=== PATIENT | female | born 1930 | race Caucasian/White ===

== ENCOUNTER → 2016-09-03 | Outpatient (REF) | payer MEDICARE ==
[~2016-09-03] MED LIST: ALTA10CA3 PO; CARV3.12 PO; CENTTAB47 PO; ESTR1MIS PV; FAMO40TA3 PO; OLOP1OPD OU; PRED5PAK PO; PRESCAP4 PO; TURM500C3 PO; VITA100037 PO; [UNRECOGNIZED DRUG - CODE] PV
== END ==
LOC: M SFHCPLAZ 13:43
DX: R06.02 Shortness of breath (principal); Z53.8 Procedure and treatment not carried out for other reasons

== ENCOUNTER → 2016-09-06 | Outpatient (REF) | payer MEDICARE ==
[2016-09-06 13:28] LABS: BASO % 0.6 % (0.0-1.0); EOS # 0.5 K/mm3 (0.0-0.50); EOS % 5.8 % (0.0-3.0); LARGE UNSTAINED CELL # 0.1 K/mm3 (0.0-0.4); LARGE UNSTAINED CELL % 1.3 % (0.0-4.0); LYMPH # 1.8 K/mm3 (1.5-4.5); LYMPH % 19.3 % (24.0-44.0); MEAN CORPUSCULAR HEMOGLOBIN 31.3 pg (27.0-33.0); MEAN CORPUSCULAR VOLUME 92.3 fl (80.0-96.0); MONO # 0.7 K/mm3 (0.0-0.8); MONO % 8.1 % (0.0-5.0); NEUTROPHILS # 5.5 K/mm3 (1.8-7.7); NEUTROPHILS % 64.8 % (36.0-66.0); PLATELET COUNT, AUTOMATED 328 k/mm3 (150-450); RED CELL DISTRIBUTION WIDTH 12.2 % (11.5-14.5); WHITE BLOOD COUNT 8.6 K/mm3 (4.0-10.0)
[2016-09-06 14:08] LABS: ERYTHROCYTE SEDIMENTATION RATE 28 mm/hr (0-42)
== END ==
LOC: M SFHCPLAZ 10:45
DX: R06.02 Shortness of breath (principal); M35.3 Polymyalgia rheumatica; M81.0 Age-related osteoporosis without current pathological fracture

== ENCOUNTER → 2016-10-19 | Outpatient (CLI) | payer MEDICARE ==
[~2016-10-19] MED LIST changes: +ALKA1CHW PO; -ALTA10CA3 PO; +ALTA1CAP4 PO; +CALC-190 PO; +COUM10TA PO; +COUM2.5T17 PO; +IRON65TA PO; +TRAM50TA2 PO; +TYLE500T78 PO; -VITA100037 PO; +VITA100067 PO
[2016-10-19 12:40] LABS: MEAN CORPUSCULAR HEMOGLOBIN 30.8 pg (27.0-33.0); MEAN CORPUSCULAR HGB CONC 33.2 g/dl (32.0-36.5); MEAN CORPUSCULAR VOLUME 92.9 fl (80.0-96.0); RED CELL DISTRIBUTION WIDTH 12.2 % (11.5-14.5); WHITE BLOOD COUNT 7.9 K/mm3 (4.0-10.0)
[2016-10-19 12:44] LABS: INR 0.96
[2016-10-19 13:14] LABS: ALBUMIN 3.8 GM/DL (3.2-5.2); BILIRUBIN,TOTAL 0.3 MG/DL (0.2-1.0); CALCIUM LEVEL 10.1 MG/DL (8.8-10.2); CREATININE FOR GFR 1.05 MG/DL (0.55-1.02); GLOMERULAR FILTRATION RATE 52.7 (>32); POTASSIUM SERUM 4.2 MEQ/L (3.5-5.1); TOTAL PROTEIN 7.6 GM/DL (6.4-8.2)
--- NOTE | 2016-10-19 13:41 | REP ---
PA and lateral chest: Comparison is 08/09/2013. The lung thrasher are clear and unchanged. Cardiac size is borderline enlarged, unchanged. The bev, mediastinum, and bony thorax are unremarkable and unchanged. There is a large fixed hiatal hernia containing an air-fluid level, unchanged. Demineralization, kyphosis are again identified, unchanged. Impression: There are no new or acute cardiopulmonary findings. There are chronic stable findings as described. Signed by Archie Harris MD 10/19/2016 01:32 P
== END ==
LOC: M ADMPAT 10:18
PROVIDERS: ATTEND Orthopaedic Surgery
DX: M17.11 Unilateral primary osteoarthritis, right knee (principal); Z79.899 Other long term (current) drug therapy

== ENCOUNTER 2016-11-02 05:48 | Inpatient (IN) | payer MEDICARE ==
[2016-10-19 11:39] VITALS: BP 130/58
--- NOTE | 2016-10-29 11:13 | HPE ---
DATE OF ADMISSION: 11/02/2016 REASON FOR ADMISSION: : Preoperative history and physical for her continuing symptomatic right knee osteoarthritis. She has consented for right total knee arthroplasty per Dr. Jonah Owens. Medically she was optimized per Dr. Brittany Tyson. X-rays were consistent with advanced osteoarthritis. No known drug allergies. Medical problem list includes: Right knee osteoarthritis. Abnormal glucose level. Iron deficiency anemia. Low back pain. Chronic kidney disease stage III. Essential hypertension. Hypercholesteremia. Uterine prolapse for which the patient uses a pessary. Medication list includes: - Lutein 10 mg. - Trimo-Felton 0.025% - Patanol 0.1% - tumeric curcumin 500 mg - Estring 2 mg - multivitamin adult - Jessy [place] 325/1000/1916 mg. - famotidine 40 mg - [facility] vitamin D3 1000 units - calcium 1000 plus D 1000 - 800 mg - unit - MetroGel vaginal 0.75%. - carvedilol 3.125 mg. - prednisone 5 mg. -acetaminophen extra strength 500 mg. - Ramipril 10 mg. PAST SURGICAL HISTORY: Includes: Tonsillectomy. Appendectomy. Tubal . Total hysterectomy. FAMILY HISTORY: Noncontributory. SOCIAL HISTORY: She was a former smoker. Denies alcohol intake or illicit drugs. REVIEW OF SYSTEMS: Denies chest pain, shortness of breath, dyspnea on exertion, fever, chills, malaise, upper respiratory or urinary tract symptoms. PHYSICAL EXAMINATION: Height 64inches, half weight 143, temperature 98.2, pulse 80, respiration 14, blood pressure 120/70. She is a pleasant well-developed, well-nourished female in no acute distress. She is alert and times three. Mood and affect are appropriate. She is ambulating slow steady with favoring of the left lower extremity, antalgia about the right knee. Right knee joint line tenderness with crepitance through flexion and extension. Patellofemoral joint (PFJ) is congruent and dynamic. She is otherwise stable at the collateral ligaments patellar and quad tendons without palpable defects. No popliteal fossa mass or pain. Right hip range of motion is not limited or irritable through internal, external range of motion. Bowel soft, nontender times four. Chest rises symmetrically. Lungs: Clear to auscultation. Neck: Supple. Negative jugular venous distention (JVD) or bruits. Normocephalic. Lab and diagnostics were reviewed. UA showed positive Klebsiella greater than 30,000 CFU/mL. She was dosed for Bactrim DS twice a day times 4 days since her surgery is on 11/02/2016. Otherwise her labs were fairly unremarkable. BUN was slightly elevated at 22, chloride 109, total protein 6.2, GFR was greater than 60, creatinine 0.85. Chest x-ray showed no acute cardiopulmonary process. I do not have access to her EKG. IMPRESSION: 1. Right knee symptomatic degenerative joint disease (DJD). 2. The patient consented for right total knee arthroplasty per Dr. Jonah Owens. 3. Medical optimization per Dr. Brittany Tyson. 4. On-call to OR 1 grams IV Kefzol in OR. 5. Sequential compression device (SCD) and thromboembolic deterrent stockings (TEDS) in OR. 6. Bactrim DS times 4 days per positive urinary analysis (UA) for Klebsiella. MTDD
[2016-11-02] VITALS (8 sets, daily range): BP systolic 141–178; BP diastolic 70–82; O2SAT 96
[~2016-11-02] VITALS: Ht 162.6 cm; Wt 66.7 kg
[~2016-11-02 05:48] MED LIST changes: -COUM10TA PO; -COUM2.5T17 PO; -TRAM50TA2 PO
[2016-11-02] MEDS ORDERED: ACETAMINOPHEN 500 MG TAB PO ONE (06:00)
[2016-11-02] MEDS ORDERED: LIDOCAINE 1% MDV 20ML VIAL SQ ONE (06:00)
[2016-11-02] MEDS ORDERED: ceFAZolin SOD 1 GM in D5W MINI-BAG PLUS 50 ML IV ONE (06:00)
[2016-11-02] MEDS ORDERED: LR 1,000 ML IV ONE (06:00)
[2016-11-02] MEDS ORDERED: COUM10TA PO (06:27)
[2016-11-02] MEDS ORDERED: MIDAZOLAM INJ 2 MG/2 ML VIAL (J2250) As Ordered ONE (06:52)
[2016-11-02] MEDS ORDERED: fentaNYL 100 MCG/2 ML INJECTION (J3010) As Ordered ONE ×2 (06:52→07:17)
[2016-11-02] MEDS ORDERED: LIDOCAINE 2% INJ 100 MG/5 ML SDV (FOR ANES.) As Ordered ONE (07:17)
[2016-11-02] MEDS ORDERED: PROPOFOL 200 MG/20 ML VIAL As Ordered ONE ×2 (07:17→08:55)
[2016-11-02] MEDS ORDERED: ceFAZolin 1GM INJ (J0690) As Ordered ONE (07:19)
[2016-11-02] MEDS ORDERED: EPINEPHrine INJ 1 MG/ML 1ML AMP As Ordered ONE (07:19)
[2016-11-02] MEDS ORDERED: BUPIVACAINE LIPOSOME/PF 1.3% 20 ML VIAL (13.3MG/ML)(EXPAREL) As Ordered ONE (07:20)
[2016-11-02] MEDS ORDERED: TRANEXAMIC ACID 100 MG/ML 10ML VIAL As Ordered ONE (07:20)
[2016-11-02] MEDS ORDERED: fentaNYL 100 MCG/2 ML INJECTION (J3010) IV ONE (07:45)
[2016-11-02] MEDS ORDERED: MIDAZOLAM INJ 2 MG/2 ML VIAL (J2250) IV ONE (07:45)
[2016-11-02] MEDS ORDERED: ONDANSETRON 4MG/2ML VIAL (J2405) As Ordered ONE (09:57)
[2016-11-02] MEDS ORDERED: MORPHINE 1MG/ML IN 0.9% NACL 100ML IV BAG As Ordered ONE (10:21)
[2016-11-02] MEDS ORDERED: ONDANSETRON 4MG/2ML VIAL (J2405) IV PRN ×2 (10:45)
[2016-11-02] MEDS ORDERED: PERCOCET 5MG/325MG TAB PO PRN (10:45)
[2016-11-02] MEDS ORDERED: HYDROmorphone HCL 1 MG/ML SYRINGE (J1170) IV PRN (10:45)
[2016-11-02] MEDS ORDERED: NALBUPHINE HCL 10 MG/ML AMP (J2300) IV PRN (10:45)
[2016-11-02] MEDS ORDERED: MORPHINE 1MG/ML IN 0.9% NACL 100ML IV BAG IV PRN (10:45)
[2016-11-02] MEDS ORDERED: LR 1,000 ML IV SCH ×2 (10:45)
[2016-11-02] MEDS ORDERED: diphenhydrAMINE INJ 50MG/ML VIAL (J1200) IV PRN (10:45)
[2016-11-02] MEDS ORDERED: NALOXONE INJ 0.4 MG/1 ML VIAL (J2310) IV PRN (10:45)
[2016-11-02] MEDS ORDERED: fentaNYL 100 MCG/2 ML INJECTION (J3010) IV PRN (10:45)
[2016-11-02] MEDS ORDERED: EPIDURAL/PCA KEYS XX PRN (10:45)
[2016-11-02] MEDS ORDERED: ACETAMINOPHEN TAB 650MG DOSE (2X325MG) PO PRN (11:00)
[2016-11-02] MEDS ORDERED: FLEET ENEMA PR PRN (11:00)
[2016-11-02] MEDS: ceFAZolin SOD 1 GM in D5W MINI-BAG PLUS 50 ML IV SCH ×2 (14:00→20:31)
[2016-11-02] MEDS ORDERED: dexameTHASONE 10 MG/1 ML VIAL PRES.FREE (J1100) ONE (14:26)
[2016-11-02] MEDS ORDERED: ROPIvacaine 0.5% 30 ML INJECTION (J2795) ONE (14:26)
[2016-11-02] MEDS ORDERED: WARFARIN SOD 5 MG TAB PO ONE (17:00)
--- NOTE | 2016-11-02 17:01 | RO ---
DATE OF PROCEDURE: 11/02/2016 PREPROCEDURE DIAGNOSIS: Right knee degenerative arthritis. POSTPROCEDURE DIAGNOSIS: Right knee degenerative arthritis. OPERATIVE PROCEDURE: Right total knee arthroplasty using a size 2.5 cruciate retaining femoral component with a 2.5 rotating platform tibial tray with a 10 mm rotating platform polyethylene insert and a 32 mm polyethylene button. Prosthesis made by [employer]. It was a PFC knee. SURGEON: Leah Owens MD TRAIN ATTENDANT: David Jackson ANESTHESIA: Spinal anesthetic with a right femoral nerve block. COMPLICATIONS: None. SPECIMENS: Joint surface. ESTIMATED BLOOD LOSS: Less than 50 mL. DESCRIPTION OF PROCEDURE: Antibiotics were given intravenously preoperatively and a successful right femoral nerve block and spinal anesthetic was established as well as a Krishna catheter. A tourniquet was placed on the right upper thigh and not inflated. Right lower extremity was prepped and draped in the usual sterile fashion and after appropriate time out, the tourniquet was inflated and a longitudinal incision was made for a medial parapatellar arthrotomy of the right knee. Bovie cautery was used to coagulate crossing vessels. Limited subperiosteal dissection around the proximal medial portion of the tibia was performed and then the patella was everted and flexed. It is noteworthy that there was significant complete cartilage loss on the undersurface of the patella but also the medial and lateral femoral condyles despite the appearance of the radiographs. The drill was placed around the center of the femoral canal, followed by the intramedullary kelsie and the distal femoral cutting jig, set at 5 degrees valgus cut at 10 mm resection level for a right knee. The block was pinned into position and the distal femoral cut performed. AP sizing jig measured for a 2.5 size prosthesis. The three directional rotation jig was placed and the two drill holes made followed by the 4-in-1 block applied to the distal femur. Then the anterior-posterior chamfer cuts were performed, taking great care to protect the surrounding soft tissues. We then exposed the proximal tibia, used the extramedullary jig to estimate being parallel to the mechanical axis, references off the medial tibial condyle, set at 4 mm resection level. The block was pinned into position, secondary check with the intramedullary kelsie confirmed that we appeared to be parallel. Proximal tibial osteotomy was then performed. It was quite thinned, but I did place the laminar nitriles lab technician medially, performed a completion lateral meniscectomy with debridement of the posterolateral osteophytes and then placed the laminar nitriles lab technician laterally and performed a completion medial meniscectomy and debridement of the posterior medial osteophytes. Spacer block was too tight both in flexion and in extension at 10 mm. Thus, I went back reattached the tibial block and took an additional 4 mm off the proximal tibia and this allowed the 10 mm spacer block actually to fit quite nicely and this was very stable in both flexion and extension and to varus-valgus stress testing. Thus, I felt this would be the appropriate size components to use. I then exposed the proximal tibia and sized for a 2.5 tray and then the block was pinned into position, followed by the reamer and the broach, then the trial polyethylene and the trial femoral component fit very nicely. Brought the knee into extension, everted the patella, performed a patellar osteotomy, sized for a 32 button. Patellofemoral tracking was anatomic. We then drilled the lug holes for the femur, then removed all the trial components. My human resource assistant Mr. David Jackson was critical to the success of the procedure, mixed the cement on the back table. He also manipulated the knee several times throughout the operation, such that I could perform the operation smoothly and efficiently, helped to close the wound, helped to prepare the patient for surgery among many other tasks. While he was mixing the cement I instilled the Exparel and the periosteum around the femur posteriorly in the midline as well as posterolaterally and posteromedial as well as along the periosteal edges of the femur. Then, we copiously pulsatile lavage irrigated out the knee joint and prepared the bony surfaces for cementing, and dried them thoroughly. We removed the excess cement, placed the polyethylene and then cemented the femoral component, removed the excess cement, then brought the knee into extension, then cemented the patellar button, removed the excess cement and held the knee in extension with a patellar clamp until the cement had hardened and while we were awaiting for that, copiously pulsatile lavage irrigated out the knee joint and then continued to place the Exparel now into the capsular tissues in both the medial and lateral edges and then instilled the tranexamic acid into the joint. Then, we closed the apex of the wound with two interrupted #1 PDS sutures and then closed the medial parapatellar area with a single #1 PDS suture and then used a running double-armed Stratafix to close the capsule. The tourniquet was then released. We irrigated again and closed the deep subdermal tissues with interrupted #2-0 PDS sutures, then the skin was closed with rach, covered by Adaptic dry sterile bulky dressing. She was then transferred to the recovery room in stable condition. There were no intraoperative complications.
--- NOTE | 2016-11-02 19:54 | IPNPDOC ---
Subjective Date Seen The patient was seen on 11/02/16. Subjective Chief Complaint/HPI The patient is a 86-year-old female admitted with a reason for visit of Right Knee Arthritis. Events since last encounter NO COMPLAINTS AT PRESENT , NO PAIN , NO NAUSEA OR VOMITING , NO SOB , NO CHEST PAIN. Objective Physical Examination General Exam: Positive: Alert, Cooperative, No Acute Distress Eye Exam: Positive: PERRLA, Conjunctiva & lids normal, EOMI, Negative: Sclera icteric ENT Exam: Positive: Atraumatic, Mucous membr. moist/pink, Pharynx Normal Neck Exam: Positive: Supple, Negative: JVD, thyromegaly Chest Exam: Positive: Clear to auscultation, Normal air movement Heart Exam: Positive: Rate Normal, Regular Rhythm, Normal S1, Normal S2, Negative: Murmurs, Rubs Abdomen Exam: Positive: Normal bowel sounds, Soft, Negative: Tenderness, Hepatospenomegaly Extremity Exam: Positive: Normal pulses, Negative: Clubbing, Cyanosis, Edema Assessment /Plan Problems (1) Status post total right knee replacement Status: Acute Problem Text: Patient to be followed by Dr Ross from 11/03/16 patient had elective right total knee arthroplasty for advanced osteoarthritis, the procedure was uneventful. consulted by Dr DURAN for management of medical comorbidities pain control and dvt prophylaxis as per ortho protocol (2) Hypertension Status: Chronic Problem Text: continue ACEi and coreg (3) Hypercholesteremia Status: Chronic (4) CKD (chronic kidney disease), stage III Status: Chronic (5) Polymyalgia Status: Chronic (6) Bladder prolapse Status: Chronic Problem Text: Has pessary in place (7) Urinary incontinence Status: Chronic (8) Macular degeneration Status: Chronic (9) Degenerative disc disease Status: Chronic Plan/VTE VTE Prophylaxis Ordered?: Yes VS, I&O, 24H, Fishbone Vital Signs/I&O Vital Signs Date Time Temp Pulse Resp B/P (MAP) Pulse Ox O2 Delivery O2 Flow Rate FiO2 11/02/16 16:45 98.8 90 15 150/80 (103) 97 Nasal Cannula 2.0 JULIA MILTON MD Nov 02, 2016 19:54
[2016-11-02] MEDS: CARVedilol 3.125 MG TAB PO SCH (20:31)
[2016-11-02] MEDS: OLOPATADINE 0.1% OPHTH SOL 5ML(PATANOL) OU SCH (20:31)
[2016-11-03 02:00] VITALS: BP 146/65
[2016-11-03] MEDS: ceFAZolin SOD 1 GM in D5W MINI-BAG PLUS 50 ML IV SCH (02:08)
[2016-11-03 06:00] VITALS: BP 164/86
[2016-11-03] MEDS ORDERED: PERCOCET 5MG/325MG TAB PO PRN (06:30)
[2016-11-03 06:43] LABS: MEAN CORPUSCULAR HGB CONC 33.4 g/dl (32.0-36.5); MEAN CORPUSCULAR VOLUME 89.9 fl (80.0-96.0); RED CELL DISTRIBUTION WIDTH 12.1 % (11.5-14.5); WHITE BLOOD COUNT 12.3 K/mm3 (4.0-10.0)
[2016-11-03 06:47] LABS: INR 1.5
[2016-11-03 06:52] LABS: CALCIUM LEVEL 8.8 MG/DL (8.8-10.2); CREATININE FOR GFR 1.41 MG/DL (0.55-1.02); GLOMERULAR FILTRATION RATE 37.5 (>32); POTASSIUM SERUM 4.8 MEQ/L (3.5-5.1)
[2016-11-03] MEDS: FERROUS SULFATE 325MG TAB PO SCH (09:03)
[2016-11-03] MEDS: ONDANSETRON 4 MG TAB (S0181) PO PRN ×3 (09:03→18:25)
[2016-11-03] MEDS: MOM 30ML SUSPENSION UDC PO SCH (09:03)
[2016-11-03] MEDS: CARVedilol 3.125 MG TAB PO SCH ×2 (09:03→20:33)
[2016-11-03] MEDS: MIRALAX *UNIT DOSE* 17GM PACKET PO SCH (09:03)
[2016-11-03] MEDS: MULTIVITAMINS/MINERALS THERAP 1 TAB PO SCH (09:03)
[2016-11-03] MEDS: RAMIPRIL 5 MG CAP PO SCH (09:04)
[2016-11-03] MEDS: SENOKOT S TAB PO SCH ×2 (09:04→20:33)
[2016-11-03] MEDS: OLOPATADINE 0.1% OPHTH SOL 5ML(PATANOL) OU SCH ×2 (09:04→20:34)
[2016-11-03] MEDS: VITAMIN D 1,000 INTERNATIONAL UNITS TABLET PO SCH (09:04)
[2016-11-03] MEDS: PERCOCET 5MG/325MG TAB PO PRN ×3 (09:04→18:26)
[2016-11-03 10:00] VITALS: BP 149/74
--- NOTE | 2016-11-03 11:48 | REP ---
AP LATERAL RIGHT KNEE, TWO VIEWS: HISTORY: Knee replacement. COMPARISON: 08/20/2015 The patient is status post right total knee replacement. There is no acute fracture or dislocation. A small amount of subcutaneous air and surgical rach are present in the overlying tissue. IMPRESSION: The patient is status post right total knee replacement. There is anatomic alignment. Signed by Pasquale Ontiveros MD 11/03/2016 11:51 A
[2016-11-03 14:00] VITALS: BP 145/82
[2016-11-03] MEDS ORDERED: POLYVINYL ALCOHOL OPHTH SOLN 15 ML(LIQUITEARS) OU PRN (15:45)
[2016-11-03] MEDS ORDERED: WARFARIN SOD 2.5 MG TAB PO ONE (17:00)
[2016-11-03] MEDS ORDERED: WARFARIN SOD 5 MG TAB PO ONE (17:00)
[2016-11-03] MEDS: PRESERVISION EYE VIT PO SCH (20:30)
[2016-11-03 21:33] VITALS: O2SAT 96
[2016-11-03 22:00] VITALS: BP 142/70
[2016-11-04] MEDS: PERCOCET 5MG/325MG TAB PO PRN (05:22)
[2016-11-04 06:00] VITALS: BP 145/66
[2016-11-04 07:42] LABS: MEAN CORPUSCULAR HEMOGLOBIN 30.1 pg (27.0-33.0); MEAN CORPUSCULAR HGB CONC 32.8 g/dl (32.0-36.5); MEAN CORPUSCULAR VOLUME 91.9 fl (80.0-96.0); RED CELL DISTRIBUTION WIDTH 12.4 % (11.5-14.5); WHITE BLOOD COUNT 12.8 K/mm3 (4.0-10.0)
[2016-11-04 07:45] LABS: INR 2.27
[2016-11-04 08:06] LABS: CALCIUM LEVEL 8.7 MG/DL (8.8-10.2); CREATININE FOR GFR 1.15 MG/DL (0.55-1.02); GLOMERULAR FILTRATION RATE 47.4 (>32); POTASSIUM SERUM 4.8 MEQ/L (3.5-5.1)
[2016-11-04] MEDS: ONDANSETRON 4 MG TAB (S0181) PO PRN ×3 (09:22→22:10)
[2016-11-04] MEDS: MOM 30ML SUSPENSION UDC PO SCH (09:22)
[2016-11-04] MEDS: CARVedilol 3.125 MG TAB PO SCH ×2 (09:23→22:07)
[2016-11-04] MEDS: RAMIPRIL 5 MG CAP PO SCH (09:23)
[2016-11-04] MEDS: SENOKOT S TAB PO SCH ×2 (09:23→22:06)
[2016-11-04] MEDS: VITAMIN D 1,000 INTERNATIONAL UNITS TABLET PO SCH (09:23)
[2016-11-04] MEDS: MULTIVITAMINS/MINERALS THERAP 1 TAB PO SCH (09:23)
[2016-11-04] MEDS: traMADol 50 MG TAB PO PRN ×3 (09:24→22:10)
[2016-11-04] MEDS: PRESERVISION EYE VIT PO SCH (09:31)
[2016-11-04] MEDS: MIRALAX *UNIT DOSE* 17GM PACKET PO SCH (09:31)
[2016-11-04] MEDS: OLOPATADINE 0.1% OPHTH SOL 5ML(PATANOL) OU SCH ×2 (09:31→22:08)
[2016-11-04 14:00] VITALS: BP 133/60
[2016-11-04] MEDS ORDERED: CEPACOL LOZENGE PO PRN (16:30)
[2016-11-04 22:00] VITALS: BP 187/77
[2016-11-05 06:00] VITALS: BP 140/82
[2016-11-05] MEDS: traMADol 50 MG TAB PO PRN ×3 (06:01→16:56)
[2016-11-05 07:07] LABS: MEAN CORPUSCULAR HEMOGLOBIN 29.8 pg (27.0-33.0); MEAN CORPUSCULAR HGB CONC 32.5 g/dl (32.0-36.5); MEAN CORPUSCULAR VOLUME 91.6 fl (80.0-96.0); RED CELL DISTRIBUTION WIDTH 12.3 % (11.5-14.5); WHITE BLOOD COUNT 10.2 K/mm3 (4.0-10.0)
[2016-11-05 07:13] LABS: INR 2.06
[2016-11-05 07:15] LABS: CALCIUM LEVEL 8.9 MG/DL (8.8-10.2); CREATININE FOR GFR 1.06 MG/DL (0.55-1.02); GLOMERULAR FILTRATION RATE 52.1 (>32); POTASSIUM SERUM 4.5 MEQ/L (3.5-5.1)
[2016-11-05] MEDS ORDERED: TRAM50TA2 PO (07:36)
[2016-11-05] MEDS ORDERED: COUM2.5T17 PO (07:36)
[2016-11-05] MEDS: FERROUS SULFATE 325MG TAB PO SCH (08:29)
[2016-11-05] MEDS: VITAMIN D 1,000 INTERNATIONAL UNITS TABLET PO SCH (08:29)
[2016-11-05] MEDS: SENOKOT S TAB PO SCH (08:29)
[2016-11-05] MEDS: PRESERVISION EYE VIT PO SCH (08:29)
[2016-11-05] MEDS: MULTIVITAMINS/MINERALS THERAP 1 TAB PO SCH (08:29)
[2016-11-05 08:30] VITALS: BP 173/73
[2016-11-05] MEDS: MIRALAX *UNIT DOSE* 17GM PACKET PO SCH (08:30)
[2016-11-05] MEDS: CARVedilol 3.125 MG TAB PO SCH (08:30)
[2016-11-05] MEDS: OLOPATADINE 0.1% OPHTH SOL 5ML(PATANOL) OU SCH (08:30)
[2016-11-05] MEDS: RAMIPRIL 5 MG CAP PO SCH (08:30)
[2016-11-05] MEDS: MOM 30ML SUSPENSION UDC PO SCH (08:31)
[2016-11-05] MEDS: ONDANSETRON 4 MG TAB (S0181) PO PRN (10:34)
[2016-11-05 14:00] VITALS: BP 122/57
[2016-11-05] MEDS ORDERED: WARFARIN SOD 2.5 MG TAB PO ONE (17:00)
--- NOTE | 2016-11-08 10:32 | DSES ---
DATE OF ADMISSION: 11/02/2016 DATE OF DISCHARGE: 11/05/2016 ATTENDING PHYSICIAN: Dr. Jonah Bautista the ADMISSION DIAGNOSIS: Osteoarthritis right knee. OTHER DIAGNOSES: Anemia. Chronic low back pain. Chronic kidney disease stage III. Hypertension. Elevated cholesterol. Bladder prolapse urinary incontinence. Macular degeneration. Polymyalgia DISCHARGE DIAGNOSIS: Osteoarthritis right knee status post right total knee arthroplasty. OPERATION PERFORMED: Right total knee arthroplasty. HISTORY: This is a pleasant 86-year-old female patient with progressively worsening right knee pain and stiffness. She failed to improve with conservative management. She was admitted for elective knee replacement on right side. HOSPITAL COURSE: The patient was admitted on the day of surgery and underwent the right total knee arthroplasty, which was uneventful. She did well in the postoperative period with pain control. She did struggle with the requirements for physical therapy and due to her numerous comorbidities and struggles with physical therapy was [facility]. On day of discharge she is weightbearing as tolerated on her right knee. She will move her right knee to prevent stiffness. She will use adjusted dose Coumadin and thromboembolic deterrent (NEERU) stockings for 30 days postoperative for deep venous thrombosis (DVT) prophylaxis. She will resume her preoperative medications and diet. She will use oral pain medications for pain control. She will followup in our office in 10-14 days for surgical followup. She was given instructions include but not limited to wound monitoring and activity limitations. Please refer the medical record for further details.
== END 2016-11-05 17:39 | disposition home health service (06) | DRG 470 ==
LOC: M OR 05:48 → M MS5PR 12:00
PROVIDERS: ADMIT Orthopaedic Surgery; ATTEND Orthopaedic Surgery
PROC: 0SRC0J9 Replacement of Right Knee Joint with Synthetic Substitute, Cemented, Open Approach (ICD-10-PCS; principal; 2016-11-02 07:30)
DX: M17.11 Unilateral primary osteoarthritis, right knee (principal); D50.9 Iron deficiency anemia, unspecified; M54.5 Low back pain; N81.10 Cystocele, unspecified; I12.9 Hypertensive chronic kidney disease with stage 1 through stage 4 chronic kidney disease, or unspecified chronic kidney disease; E78.5 Hyperlipidemia, unspecified; M35.3 Polymyalgia rheumatica; H35.30 Unspecified macular degeneration; N39.3 Stress incontinence (female) (male); M81.0 Age-related osteoporosis without current pathological fracture; H91.91 Unspecified hearing loss, right ear; Z79.52 Long term (current) use of systemic steroids; Z87.891 Personal history of nicotine dependence; Z79.899 Other long term (current) drug therapy

== ENCOUNTER → 2017-05-13 | Outpatient (REF) | payer MEDICARE ==
[2017-05-13 15:52] LABS: BASO # 0.1 10^3/uL (0.0-0.2); BASO % 0.8 % (0.0-1.0); EOS # 0.5 10^3/uL (0.0-0.50); EOS % 6.1 % (0.0-3.0); HEMATOCRIT 34.5 % (36.0-47.0); HEMOGLOBIN 11.2 g/dl (12.0-16.0); IMMATURE GRANULOCYTE % 0.2 % (0-3.0); LYMPH # 2.2 10^3/uL (1.5-4.5); LYMPH % 26.4 % (24.0-44.0); MEAN CORPUSCULAR HEMOGLOBIN 29.6 pg (27.0-33.0); MEAN CORPUSCULAR HGB CONC 32.5 g/dl (32.0-36.5); MONO # 0.9 10^3/uL (0.0-0.8); MONO % 10.3 % (0.0-5.0); NEUTROPHILS # 4.7 10^3/uL (1.8-7.7); NEUTROPHILS % 56.2 % (36.0-66.0); PLATELET COUNT, AUTOMATED 310 10^3/uL (150-450); RED BLOOD COUNT 3.79 10^6/uL (4.00-5.40); RED CELL DISTRIBUTION WIDTH 12.5 % (11.5-14.5); WHITE BLOOD COUNT 8.3 10^3/uL (4.0-10.0)
[2017-05-13 16:12] LABS: ALBUMIN 3.8 GM/DL (3.2-5.2); ALBUMIN/GLOBULIN RATIO 1.03 (1.00-1.93); ALKALINE PHOSPHATASE 76 U/L (45-117); ALT/SGPT 15 U/L (12-78); ANION GAP 6 MEQ/L (8-16); AST/SGOT 17 U/L (7-37); BILIRUBIN,TOTAL 0.3 MG/DL (0.2-1.0); BLOOD UREA NITROGEN 28 MG/DL (7-18); CALCIUM LEVEL 9.6 MG/DL (8.8-10.2); CARBON DIOXIDE LEVEL 30 MEQ/L (21-32); CHLORIDE LEVEL 104 MEQ/L (98-107); CREATININE FOR GFR 1.14 MG/DL (0.55-1.30); FERRITIN 137 NG/ML (8-252); GLOMERULAR FILTRATION RATE 47.9 (>32); GLUCOSE, FASTING 107 MG/DL (70-100); IRON (FE) 39 UG/DL (50-170); PERCENT SATURATION 13.1 % (13.2-45.0); POTASSIUM SERUM 4.8 MEQ/L (3.5-5.1); SODIUM LEVEL 140 MEQ/L (136-145); TOTAL IRON BINDING CAPACITY 297 UG/DL (250-450); TOTAL PROTEIN 7.5 GM/DL (6.4-8.2)
[2017-05-13 16:56] LABS: ERYTHROCYTE SEDIMENTATION RATE 43 mm/hr (0-42)
[2017-05-15 08:06] LABS: TRANSFERRIN 235 mg/dL (200-370)
== END ==
LOC: M SFHCPLAZ 15:03
DX: Z00.00 Encounter for general adult medical examination without abnormal findings (principal); N18.3 Chronic kidney disease, stage 3 (moderate); D64.9 Anemia, unspecified; R13.10 Dysphagia, unspecified; M25.511 Pain in right shoulder; M25.512 Pain in left shoulder; G89.29 Other chronic pain; Z91.09 Other allergy status, other than to drugs and biological substances
CPT/HCPCS: 80053

== ENCOUNTER → 2017-06-07 | Outpatient (REF) | payer MEDICARE ==
[2017-06-07 19:39] LABS: URINE TOTAL PROTEIN 7.8 MG/DL (0-12)
[2017-06-07 19:46] LABS: TOTAL PROTEIN 7.4 GM/DL (6.4-8.2)
[2017-06-08 13:15] LABS: ALBUMIN 4.14 GM/DL (3.29-5.55); ALBUMIN % 55.9 % (55.8-66.1); ALPHA-1-GLOBULIN % 4.4 % (2.9-4.9); ALPHA-1-GLOBULINS 0.33 GM/DL (0.17-0.41); ALPHA-2-GLOBULINS 0.88 GM/DL (0.42-0.99); ALPHA-2-GLOBULINS % 11.9 % (7.1-11.8); BETA-1-GLOBULINS 0.43 GM/DL (0.28-0.60); BETA-1-GLOBULINS % 5.8 % (4.7-7.2); BETA-2-GLOBULINS 0.38 GM/DL (0.19-0.55); BETA-2-GLOBULINS % 5.2 % (3.2-6.5); GAMMA GLOBULIN % 16.8 % (11.1-18.8); GAMMA GLOBULINS 1.24 GM/DL (0.65-1.58)
== END ==
LOC: M LAB REF 16:54
DX: E83.52 Hypercalcemia (principal)
CPT/HCPCS: 84165

== ENCOUNTER 2017-06-17 10:57 | Day surgery (SDC) | payer MEDICARE ==
[2017-06-17] MEDS: NS 1,000 ML IV ×2 (12:44)
[2017-06-17] MEDS ORDERED: LIDOCAINE 2% INJ 100 MG/5 ML SDV (FOR ANES.) As Ordered ×6 (13:25→14:29)
[2017-06-17] MEDS ORDERED: PROPOFOL 200 MG/20 ML VIAL As Ordered ×4 (13:25→14:12)
== END 2017-06-17 15:40 | disposition home or self-care (01) ==
LOC: M OPP 10:57
DX: R13.10 Dysphagia, unspecified (principal); R93.3 Abnormal findings on diagnostic imaging of other parts of digestive tract; K22.2 Esophageal obstruction; K22.8 Other specified diseases of esophagus; K44.9 Diaphragmatic hernia without obstruction or gangrene; R00.0 Tachycardia, unspecified; I12.9 Hypertensive chronic kidney disease with stage 1 through stage 4 chronic kidney disease, or unspecified chronic kidney disease; I10 Essential (primary) hypertension; E78.5 Hyperlipidemia, unspecified; E05.90 Thyrotoxicosis, unspecified without thyrotoxic crisis or storm; E04.1 Nontoxic single thyroid nodule; H25.9 Unspecified age-related cataract; H35.30 Unspecified macular degeneration; R12 Heartburn; D64.9 Anemia, unspecified; R23.3 Spontaneous ecchymoses; M19.90 Unspecified osteoarthritis, unspecified site; M54.89 Other dorsalgia; M81.0 Age-related osteoporosis without current pathological fracture; F41.9 Anxiety disorder, unspecified; N81.10 Cystocele, unspecified; N18.3 Chronic kidney disease, stage 3 (moderate); Z79.899 Other long term (current) drug therapy; Z80.0 Family history of malignant neoplasm of digestive organs
CPT/HCPCS: 43249

== ENCOUNTER → 2017-09-15 | Outpatient (REF) | payer MEDICARE ==
[2017-09-15 17:54] LABS: ANION GAP 9 MEQ/L (8-16); BLOOD UREA NITROGEN 27 MG/DL (7-18); CALCIUM LEVEL 9.4 MG/DL (8.8-10.2); CARBON DIOXIDE LEVEL 28 MEQ/L (21-32); CHLORIDE LEVEL 105 MEQ/L (98-107); CREATININE FOR GFR 1.21 MG/DL (0.55-1.30); GLOMERULAR FILTRATION RATE 44.7 (>32); GLUCOSE, FASTING 107 MG/DL (70-100); POTASSIUM SERUM 4.6 MEQ/L (3.5-5.1); SODIUM LEVEL 142 MEQ/L (136-145)
[2017-09-15 18:03] LABS: PTH INTACT 37.7 PG/ML (18.5-88.0)
== END ==
LOC: M SFHCPLAZ 15:43
DX: E83.52 Hypercalcemia (principal)
CPT/HCPCS: 80048

== ENCOUNTER → 2017-11-03 | Outpatient (CLI) | payer MEDICARE ==
[2017-11-03 11:05] LABS: HEMATOCRIT 35.7 % (36.0-47.0); HEMOGLOBIN 11.4 g/dl (12.0-15.5); MEAN CORPUSCULAR HEMOGLOBIN 29.2 pg (27.0-33.0); MEAN CORPUSCULAR HGB CONC 31.9 g/dl (32.0-36.5); MEAN CORPUSCULAR VOLUME 91.3 fl (80.0-96.0); PLATELET COUNT, AUTOMATED 272 10^3/uL (150-450); RED BLOOD COUNT 3.91 10^6/uL (4.00-5.40); RED CELL DISTRIBUTION WIDTH 12.2 % (11.5-14.5); WHITE BLOOD COUNT 6.9 10^3/uL (4.0-10.0)
[2017-11-03 11:54] LABS: ERYTHROCYTE SEDIMENTATION RATE 35 mm/hr (0-42)
[2017-11-03 12:06] LABS: ANION GAP 9 MEQ/L (8-16); BLOOD UREA NITROGEN 19 MG/DL (7-18); CALCIUM LEVEL 9.2 MG/DL (8.8-10.2); CARBON DIOXIDE LEVEL 27 MEQ/L (21-32); CHLORIDE LEVEL 106 MEQ/L (98-107); COMPLEMENT C3 111 MG/DL (90-180); COMPLEMENT C4 29.4 MG/DL (10-40); CPK CREATINE PHOSPHOKINASE 95 U/L (26-192); CREATININE FOR GFR 1.21 MG/DL (0.55-1.30); GLOMERULAR FILTRATION RATE 44.6 (>32); GLUCOSE, FASTING 104 MG/DL (70-100); POTASSIUM SERUM 4.8 MEQ/L (3.5-5.1); RHEUMATOID FACTOR QUANT < 10.0 IU/ML (<15.0); SODIUM LEVEL 142 MEQ/L (136-145); URIC ACID 3.1 MG/DL (2.6-6.0)
[2017-11-06 00:06] LABS: CYCLIC CITRULLINATED PEPTIDE 21 units (0-19)
[2017-11-06 00:06] LABS: ALDOLASE 3.8 U/L (3.3-10.3); ANA (HEP2) Positive (.); ANTI DOUBLE STRAND-DNA AB <1 IU/mL (0-9); ANTINUCLEAR ANTIBODIES DIRECT Positive (Negative); RNP ANTIBODIES 7.5 AI (0.0-0.9); SJOGREN'S ANTI SS-A <0.2 AI (0.0-0.9); SJOGREN'S ANTI SS-B <0.2 AI (0.0-0.9); SMITH ANTIBODIES <0.2 AI (0.0-0.9)
== END ==
LOC: M LAB 10:09
DX: M17.12 Unilateral primary osteoarthritis, left knee (principal); Z96.651 Presence of right artificial knee joint; R93.7 Abnormal findings on diagnostic imaging of other parts of musculoskeletal system; M19.041 Primary osteoarthritis, right hand; M19.042 Primary osteoarthritis, left hand
CPT/HCPCS: 73030

== ENCOUNTER → 2018-04-03 | Outpatient (REF) | payer MEDICARE ==
[~2018-04-03] MED LIST changes: +CENT1CHW5 PO; +COUM10TA PO; +COUM2.5T17 PO; +IRON240T PO; +MELA5TAB20 PO; +OCUVCAP2 PO; +OMEP40CA2; +TRAM50TA2 PO
[2018-04-03 18:58] LABS: TOTAL PROTEIN 7.6 GM/DL (6.4-8.2)
[2018-04-04 13:08] LABS: ALBUMIN 4.16 GM/DL (3.29-5.55); ALBUMIN % 54.8 % (55.8-66.1); ALPHA-1-GLOBULIN % 5.2 % (2.9-4.9); ALPHA-2-GLOBULINS 1.02 GM/DL (0.42-0.99); ALPHA-2-GLOBULINS % 13.4 % (7.1-11.8); BETA-1-GLOBULINS 0.43 GM/DL (0.28-0.60); BETA-1-GLOBULINS % 5.6 % (4.7-7.2); BETA-2-GLOBULINS 0.39 GM/DL (0.19-0.55); BETA-2-GLOBULINS % 5.1 % (3.2-6.5); GAMMA GLOBULIN % 15.9 % (11.1-18.8); GAMMA GLOBULINS 1.21 GM/DL (0.65-1.58)
[2018-04-06 00:06] LABS: FREE KAPPA LIGHT CHAINS SERUM 33.5 mg/L (3.3-19.4); FREE LAMBDA LIGHT CHAINS SERUM 26.7 mg/L (5.7-26.3); KAPPA/LAMBDA RATIO SERUM 1.25 (0.26-1.65)
[2018-04-06 11:28] LABS: UPEP INTERPRETATION NO M-SPIKE NOTED; URINE VOLUME RANDOM ML
== END ==
LOC: M LAB REF 17:04
PROVIDERS: ATTEND Internal Medicine Nephrology
DX: R80.9 Proteinuria, unspecified (principal)

== ENCOUNTER → 2018-09-21 | Outpatient (REF) | payer MEDICARE ==
[~2018-09-21] MED LIST changes: -OLOP1OPD OU; +PATA2.5S OU
[2018-09-21 15:42] LABS: BASO # 0.1 10^3/uL (0.0-0.2); EOS # 0.6 10^3/uL (0.0-0.50); EOS % 7.2 % (0.0-3.0); HEMATOCRIT 35.4 % (36.0-47.0); HEMOGLOBIN 11.2 g/dl (12.0-15.5); LYMPH % 24.5 % (24.0-44.0); MEAN CORPUSCULAR HEMOGLOBIN 30.1 pg (27.0-33.0); MEAN CORPUSCULAR HGB CONC 31.6 g/dl (32.0-36.5); MEAN CORPUSCULAR VOLUME 95.2 fl (80.0-96.0); MONO # 0.8 10^3/uL (0.0-0.8); MONO % 9.5 % (0.0-5.0); NEUTROPHILS # 4.8 10^3/uL (1.8-7.7); NEUTROPHILS % 57.7 % (36.0-66.0); PLATELET COUNT, AUTOMATED 298 10^3/uL (150-450); RED BLOOD COUNT 3.72 10^6/uL (4.00-5.40); WHITE BLOOD COUNT 8.3 10^3/uL (4.0-10.0)
[2018-09-21 15:47] LABS: CALCIUM LEVEL 9.3 MG/DL (8.8-10.2); CREATININE FOR GFR 1.21 MG/DL (0.55-1.30); GLOMERULAR FILTRATION RATE 44.6 (>32); POTASSIUM SERUM 4.7 MEQ/L (3.5-5.1)
[2018-09-21 15:48] LABS: APPEARANCE, URINE CLOUDY (CLEAR); BACTERIA, URINE AUTO 1+ (NEGATIVE); BILIRUBIN, URINE AUTO NEGATIVE (NEGATIVE); BLOOD, URINE BLOOD 1+ (NEGATIVE); COLOR, URINE YELLOW (YELLOW); GLUCOSE, URINE (UA) AUTO NEGATIVE (NEGATIVE); KETONE, URINE AUTO NEGATIVE (NEGATIVE); LEUKOCYTE ESTERASE, URINE AUTO 3+ (NEGATIVE); NITRITE, URINE AUTO NEGATIVE (NEGATIVE); PROTEIN, URINE AUTO 1+ mg/dL (NEGATIVE); RBC, URINE AUTO 50 /HPF (0-3); RENAL EPITHELIAL CELLS 1 /HPF; SPECIFIC GRAVITY URINE AUTO 1.013 (1.002-1.035); SQUAMOUS EPITHELIAL CELL UR AU 27 /HPF (0-6); TRANSITIONAL EPITHELIAL AUTO 1 /HPF; UROBILINOGEN, URINE AUTO 0.2 mg/dL (0.0-2.0); WBC, URINE AUTO TNTC /HPF (0-3)
[2018-09-26 08:07] LABS: IGASUB3 12.8 mg/dL (13.4-97.9); IgA SERUM (part of Subclasses) 143 mg/dL (64-422); TISSUE TRANSGLUTAMINASE IgA <2 U/mL (0-3); TISSUE TRANSGLUTAMINASE IgG 4 U/mL (0-5)
== END ==
LOC: M SFHCPLAZ 13:21
DX: D64.9 Anemia, unspecified (principal); I10 Essential (primary) hypertension; R19.7 Diarrhea, unspecified
CPT/HCPCS: 36415; 80048; 81001; 82784; 83516; 85025; 86256; G0463